=== PATIENT | female | born 1970 | race Caucasian/White ===

== ENCOUNTER 2016-11-22 02:30 | Observation (INO) | payer SELFPAY ==
--- NOTE | ~2016-11-22 | DS ---
Discharge Summary [facility] [address] [place]. [address] NAME: ANGELITO GRACE : 66 STATUS : DIS Ced PAT#: [id number] AGE: 46 ADM/REG DATE : 11/22/16 MR#: [id number] REPORT SERV DATE: 11/23/16 DICTATED BY: KIET MATOS DATE: 11/23/16 REPORT STATUS : Draft TRANSCRIBED BY: MODL DATE: 11/23/16 ADMISSION DATE: 11/22/2016 DISCHARGE DATE: 11/23/2016 DISCHARGE DIAGNOSES: 1. Chest pain. 2. Possible restless legs syndrome. HISTORY: This patient has had a week of intermittent chest pain. The duration lasts for minutes. It radiates to both arms, radiates to her right jaw, that is a pressure like sensation with and without activity. She had some mild shortness of breath. No nausea. This is a new problem. She has no cardiac risk factors. She is a nonsmoker. No diabetes. No hypertension. Because of this, she went to the [place] [facility] near her home. There, she had two sets of cardiac enzymes were normal and an EKG that was normal, other than sinus bradycardia. CPK was normal there and her chest x-ray was interpreted as normal there. She was transferred here for further evaluation. Here, repeat troponin was normal. D-dimer was 0.34 which is normal. EKG here revealed sinus bradycardia, otherwise unremarkable. The patient underwent a nuclear stress test, which was indeterminate, mostly because of breast attenuation. Consulted Cardiology, spoke with Dr. Arnold Shafer, he recommended a PET cardiac scan which was done on the morning of 11/23/2016, it was normal. Cardiology felt it was a normal study. So, the patient is being released home. She is not on any medications. She will return to the ER if she has any further chest pain. She does admit she is under lot of stress taking care of her elderly grandfather and her 3- year-old grandchild. DICTATED BY: Mukesh Zuleta/MAYNOR Kiet Matos M.D. / [id number] CC: Eliu Birch MD
--- NOTE | ~2016-11-22 | HP ---
History And Physical [address] [address] NAME: ANGELITO GRACE : 66 STATUS : ADM Ced PAT#: [id number] AGE: 46 ADM/REG DATE : 11/22/16 MR#: [id number] REPORT SERV DATE: 11/22/16 DICTATED BY: ABHI PETERSEN DATE: 11/22/16 REPORT STATUS : Draft TRANSCRIBED BY: MODL DATE: 11/22/16 DATE OF ADMISSION: 11/22/2016 PRIMARY CARE PHYSICIAN: In [place], [place]. CHIEF COMPLAINT: A 46-year-old female presenting with chest pain. HISTORY OF PRESENT ILLNESS: The patient's history was obtained through an interview with the patient and her ex-. For several days, the patient has had new onset chest discomfort, but it really became severe on the night leading up to admission. She describes left-sided chest discomfort underneath her left breast into her chest with radiation into her left arm, but she has also had right jaw area pain going to the anterior portion of her neck into the right arm. She describes the chest discomfort as quality like "someone sitting on me," about a 6/10 severity. She has had fluttering and palpitations in her chest. No shortness of breath. No nausea or vomiting. No lightheadedness. She describes something like restless legs syndrome making it difficult for her to sleep at night. No fevers or chills. No cough. No leg symptoms. Otherwise, no leg edema. No abdominal pain. No change of bowel or bladder habit. REVIEW OF SYSTEMS: Otherwise, a 14-point review of systems was obtained was negative. PAST MEDICAL HISTORY: Literally denies any past medical history. No cardiac disease. No lung disease. PAST SURGICAL HISTORY: 1. Hysterectomy with oophorectomy. 2. Cholecystectomy. ALLERGIES: NO KNOWN DRUG ALLERGIES. SOCIAL HISTORY: No tobacco abuse. No alcohol abuse. Lives in [place], [place], is , lives alone. Has children and is unemployed. FAMILY HISTORY: Two grandfathers with heart disease. A grandmother with pacemaker. Mother at 32 years of age of leukemia. Father is healthy, but not well known to patient. CURRENT MEDICATIONS: Denies any. History And Physical [address] [address] NAME: ANGELITO GRACE : 66 STATUS : ADM Ced PAT#: [id number] AGE: 46 ADM/REG DATE : 11/22/16 MR#: [id number] REPORT SERV DATE: 11/22/16 DICTATED BY: ABHI PETERSEN DATE: 11/22/16 REPORT STATUS : Draft TRANSCRIBED BY: MAYNOR DATE: 11/22/16 PHYSICAL EXAMINATION: VITAL SIGNS: Temperature 98.2, pulse 65, blood pressure 131/71, respiratory rate 20, and O2 saturation 98% on room air. GENERAL: A pleasant, cooperative female, no evidence of acute distress. HEENT: Pupils are equal, round, and reactive to light. No conjunctival pallor. No scleral icterus. Nares are patent. Oropharynx is clear of obstruction. Moist mucous membranes. NECK: Trachea midline. No thyromegaly. LYMPH: No cervical lymphadenopathy. No supraclavicular lymphadenopathy. RESPIRATORY: Clear to auscultation at bases. No wheezes, rales, or rhonchi. Normal respiratory effort. CARDIOVASCULAR: Regular rate and rhythm. No murmurs, rubs, or gallops. No extremity edema is appreciated. ABDOMEN: Soft, nontender, nondistended. Normal bowel sounds auscultated throughout. No hepatosplenomegaly. DERMATOLOGICAL: Warm and dry. EXTREMITIES: No pallor. No cyanosis. PSYCHIATRIC: Normal affect. Good mood. Alert and oriented x3. LABORATORY DATA: White blood cell count 5.7, hemoglobin 12.5, hematocrit 36, and platelets 243. Sodium 140, potassium 3.7, chloride 104, bicarb 30, BUN 15, creatinine 1.0, and glucose 86. Troponin negative. INR is 0.96. Liver enzymes within normal limits. STUDIES: 1. Chest x-ray was reported as negative from outlying facility. 2. EKG was reported as negative from outlying facility. ASSESSMENT AND PLAN: 1. Chest pain. We will place her on aspirin. Check a nuclear cardiac stress test. 2. Palpitations. Check telemetry. Check thyroid. L/MAYNOR Abhi Petersen M.D. / [id number] CC: Eliu Birch MD
[2016-11-22 05:47] LABS: BASOPHILS 0.2 %; BASOPHILS ABSOLUTE 0.01 10/3/uL (0.0-0.16); EOSINOPHILS 2.4 %; EOSINOPHILS ABSOLUTE 0.11 10/3/uL (0.0-0.53); HEMATOCRIT 34.6 % (36.0-48.0); HEMOGLOBIN 12.1 g/dL (12.0-16.0); IMMATURE GRANULOCYTES 0.2 %; IMMATURE GRANULOCYTES ABSOLUTE 0.01 10/3/uL (0.0-0.11); LYMPHOCYTES 48.9 %; MEAN CORPUSCULAR HEMOGLOB 32.4 pg (26.0-34.0); MEAN CORPUSCULAR VOLUME 92.5 fL (80-100); MEAN PLATELET VOLUME 9.1 fL (9.2-13.0); MONOCYTES 13.6 %; MONOCYTES ABSOLUTE 0.61 10/3/uL (0.21-1.20); NEUTROPHILS 34.7 %; NEUTROPHILS ABSOLUTE 1.56 10/3/uL (2.02-8.40); PLATELET COUNT 223 10/3/uL (150-400); RBC DISTRIBUTION WIDTH 12.1 % (12.0-16.0); RED CELL COUNT 3.74 10/6/uL (4.0-5.6); WHITE BLOOD CELLS 4.5 10/3/uL (4.5-10.5)
[2016-11-22 05:48] LABS: MANUAL DIFF NO %
[2016-11-22 06:10] LABS: PARTIAL THROMBO TIME 25.7 SEC (22.5-37.2); PROTIME (NOT ORD) 12.8 SEC (12.0-14.5)
[2016-11-22 06:17] LABS: ALBUMIN 3.3 G/DL (3.5-5.0); ALKALINE PHOSPHATASE 93 U/L (45-117); BUN (BLOOD UREA NITROGEN) 13 MG/DL (6-23); CALCIUM, SERUM 8.6 MG/DL (8.5-10.4); CHLORIDE, SERUM 109 MMOL/L (96-112); CHOL/HDL RATIO(NOT ORDER) 3.5 (0-5); CHOLESTEROL 172 MG/DL (< 200); CO2 (CARBON DIOXIDE) 28 MMOL/L (24-34); CREATININE 0.75 MG/DL (0.55-1.02); GFR AFRICAN AMERICAN 109 ML/MIN (>=60); GFR NON AFRICAN AMERICAN 94 ML/MIN (>=60); GLOBULIN 3.2 G/DL (2.5-4.1); GLUCOSE, SERUM 86 MG/DL (60-99); HDL CHOLESTEROL 49 MG/DL (> 49); LDL CHOLESTEROL 102 MG/DL (< 130); NON-HDL CHOLESTEROL 123 MG/DL (< 160); POTASSIUM, SERUM 3.5 MMOL/L (3.5-5.3); SGOT(AST) 17 U/L (5-40); SGPT(ALT) 18 U/L (5-65); SODIUM, SERUM 143 MMOL/L (135-148); TOTAL BILIRUBIN 0.6 MG/DL (0-1.2); TOTAL PROTEIN 6.5 G/DL (6.0-8.5); TRIGLYCERIDE 107 MG/DL (< 150); TROPONIN I <0.02 NG/ML (<0.05)
[2016-11-22 06:35] LABS: ASCORBIC ACID (UR NOT ORDER) NEG (NEG); BILIRUBIN, URINE NEGATIVE (NEG); KETONE, URINE NEGATIVE (NEG); LEUKOCYTE ESTERASE(NOT OR NEG (NEG); WBC (NOT ORDERED) (RFLEX) 1 (0-5)
[2016-11-22 10:37] LABS: CPK 45 U/L (0-200); TROPONIN I <0.02 NG/ML (<0.05)
[2016-11-22 10:38] LABS: CK-MB 0.5 NG/ML
[2016-11-23] MEDS ORDERED: ACETUDL PO (11:27)
== END 2016-11-23 12:19 | disposition home or self-care (01) ==
LOC: 6NO 02:30
PROVIDERS: Hospitalist; Internal Medicine
DX: R07.9 Chest pain, unspecified (principal); R00.2 Palpitations; Z90.710 Acquired absence of both cervix and uterus; Z90.49 Acquired absence of other specified parts of digestive tract; Z82.49 Family history of ischemic heart disease and other diseases of the circulatory system
CPT/HCPCS: 78452; 78492; 80053; 80061; 81001; 82550; 82553; 83735; 83880; 84443; 84484; 85025; 85379; 85610; 85730; 93005; 93017; 96372; 96374; A9270-GY; A9502; A9555; G0378; G0379; J2785